=== PATIENT | female | born 1965 | race Caucasian/White ===

== ENCOUNTER 2018-07-04 15:39 | Day surgery (SDC) | payer OTHER ==
[~2018-07-04] VITALS: Ht 160 cm; Wt 78.8 kg
[~2018-07-04 15:39] MED LIST: CEFAZOLIN 1,000 MG ONE; DEXAMETHASONE 4 MG/ML, 1ML ONE; LEVO25TA2 PO; ONDANSETRON 2MG/ML, 2ML ONE; PROPOFOL 10 MG/ML, 20ML ONE; ROCURONIUM 10MG/ML,5ML ONE; SUCCINYLCHOLINE 20 MG/ML, 10ML ONE
[2018-07-04 16:51] VITALS: BP 161/95
[2018-07-04] MEDS ORDERED: LACTATED RINGERS 1,000 ML IV SCH (16:59)
[2018-07-04] MEDS ORDERED: SCOPOLAMINE PATCH, 1.5MG PATCH.TD72 TD ONE ×2 (17:25→18:00)
[2018-07-04] MEDS ORDERED: BUPIVACAINE/PF 0.25% ONE (17:31)
[2018-07-04 17:38] LABS: BASOPHILS # (AUTO) 0.02 x10^3/uL (0-0.1); BASOPHILS % (AUTO) 0 % (0-1); EOSINOPHILS # (AUTO) 0.11 x10^3/uL (0-0.4); EOSINOPHILS % (AUTO) 2 % (1-7); LYMPHOCYTES # (AUTO) 1.33 x10^3/uL (1-3.4); LYMPHOCYTES % (AUTO) 21 % (22-44); MD NO; MEAN CORPUSCULAR HEMOGLOBIN 30.4 pg (27.0-34.8); MEAN CORPUSCULAR HGB CONC 33.7 g/dL (32.4-35.8); MEAN CORPUSCULAR VOLUME 90.3 fL (80-100); MEAN PLATELET VOLUME 7.6 fL (7.4-10.4); MONOCYTES # (AUTO) 0.39 x10^3/uL (0.2-0.8); MONOCYTES % (AUTO) 6 % (2-9); NEUTROPHILS # (AUTO) 4.39 x10^3/uL (1.8-6.8); NEUTROPHILS % (AUTO) 70 % (42-75); PLATELET COUNT 212 x10^3/uL (130-400); RED BLOOD COUNT 4.82 x10^6/uL (3.82-5.3); RED CELL DISTRIBUTION WIDTH 12.7 % (9.6-15.2)
[2018-07-04 17:45] LABS: INTERNATIONAL NORMALIZED RATIO 0.95 (0.93-1.1); PROTHROMBIN TIME 10.1 Seconds (9.6-11.5)
[2018-07-04] MEDS ORDERED: MIDAZOLAM 1 MG/ML, 2ML ONE (17:45)
[2018-07-04] MEDS ORDERED: MEPERIDINE/PF 25MG/0.5ML ONE (19:20)
[2018-07-04] MEDS ORDERED: HYDROmorphone 2 MG/ML, 1ML ONE ×2 (19:20→20:08)
[2018-07-04] MEDS ORDERED: PROMETHAZINE 25 MG/ML, 1ML ONE (19:20)
[2018-07-04] MEDS: HYDROmorphone 1 MG/ML, 1ML IV PRN ×7 (19:25→20:45)
[2018-07-04] MEDS ORDERED: PROMETHAZINE 25 MG/ML, 1ML IV PRN (19:30)
[2018-07-04] MEDS ORDERED: ONDANSETRON 2MG/ML, 2ML IVPush PRN (19:30)
[2018-07-04] MEDS ORDERED: MEPERIDINE/PF 25MG/0.5ML IVPush PRN (19:30)
[2018-07-04] MEDS ORDERED: LABETALOL 5MG/ML, 20ML IV PRN (19:30)
[2018-07-04] MEDS ORDERED: ALBUTEROL SULFATE 2.5 MG/3 ML NPPB PRN (19:30)
[2018-07-04] MEDS ORDERED: OXYcodone 5 MG/5 ML ORAL.SOL UDC PO PRN (19:30)
[2018-07-04] MEDS ORDERED: KETOROLAC 30 MG/1 ML IV PRN (19:30)
[2018-07-04] MEDS ORDERED: hydrALAzine 20 MG/ML, 1ML IV PRN (19:30)
[2018-07-04] MEDS ORDERED: METOCLOPRAMIDE 5 MG/ML, 2ML IV PRN (19:30)
[2018-07-04] MEDS: FENTANYL PF 100 MCG/2ML IV PRN ×3 (19:30→20:09)
[2018-07-04] MEDS ORDERED: FENTANYL PF 100 MCG/2ML ONE ×2 (19:38→20:08)
[2018-07-04] MEDS ORDERED: FENTANYL PF 250 MCG/5ML ONE (19:48)
[2018-07-04] MEDS ORDERED: hydrALAzine 20 MG/ML, 1ML ONE (20:13)
[2018-07-04] MEDS ORDERED: KETOROLAC 30 MG/1 ML ONE (20:30)
[2018-07-04] MEDS ORDERED: OXYcodone/APAP 5/325MG TABLET PO PRN (22:30)
[2018-07-04] MEDS ORDERED: PROMETHAZINE 25 MG/ML, 1ML IM PRN (22:30)
[2018-07-04] MEDS ORDERED: morphine SULFATE 10 MG/ML, 1ML IV PRN (22:30)
[2018-07-04] MEDS ORDERED: KETOROLAC 30 MG/1 ML IV SCH (22:30)
[2018-07-04] MEDS ORDERED: ONDANSETRON 2MG/ML, 2ML IV PRN (22:30)
[2018-07-04] MEDS ORDERED: D5%-LACTATED RINGERS 1,000 ML IV SCH (22:30)
== END 2018-07-04 23:36 | disposition home or self-care (01) ==
LOC: OR 15:39 → 4NOR 22:01 → OR 23:36
PROVIDERS: ATTEND Orthopaedic Surgery
DX: S52.571A Other intraarticular fracture of lower end of right radius, initial encounter for closed fracture (principal); W19.XXXA Unspecified fall, initial encounter; Y93.29 Activity, other involving ice and snow; Y92.89 Other specified places as the place of occurrence of the external cause; Y99.8 Other external cause status; F15.90 Other stimulant use, unspecified, uncomplicated; Z79.899 Other long term (current) drug therapy; Z72.89 Other problems related to lifestyle; Z86.718 Personal history of other venous thrombosis and embolism; Z90.710 Acquired absence of both cervix and uterus; Z98.890 Other specified postprocedural states
CPT/HCPCS: 25609; 36415; 73100; 76001; 85025; 85610; 85730; C1713; C1776; J0330; J0360; J0690; J1100; J1170; J1885; J2175; J2250; J2405; J2704; J3010; J3490; J7120; G0378